=== PATIENT | male | born 1995 | race Caucasian/White ===

== ENCOUNTER 2016-09-01 15:45 | Emergency (ER) | payer BC, MEDICAID ==
--- NOTE | 2016-09-01 15:52 | ED Physician Chart ---
Chief Complaint/HPI - Patient Information Date Seen:: 09/01/16 Time Seen:: 15:45 Chief Complaint:: headache History of Present Illness:: 20-year-old male with acute, constant, severe, 10-10, nonradiating, headache 1 week. Took [id number] pain medicine but nothing helped. Denies numbness , tingling, acute vision changes, hearing loss, chest pain, palpitations, nausea , vomiting, dysuria, gross hematuria, gross blood in stool, diarrhea. Historian:: Patient Review:: Nurse's Note Reviewed Review of Systems - Review of Systems Other: Complete system review otherwise unremarkable except as noted in history of present illness. Past Medical History - Past Medical History Past Medical History: No significant medical hx Family History: None Social History: Non Smoker, No Alcohol, No Drug Use, Employed Surgical History: None Psychiatricy History: None Medication: None Family Medical History - Family Member Mother History Unknown: Yes Physical Exam - Physical Examination Other:: INITIAL VITAL SIGNS: Reviewed by me GENERAL: Alert and interactive. No acute distress HEAD: Head is normocephalic and atraumatic EYES: EOMI. PERRL. No scleral icterus. No conjunctival injection ENT: Moist mucous membranes. NECK: Supple. No masses. Full range of motion RESPIRATORY: No tachypnea. Clear breath sounds bilaterally. No wheezing, rales, or rhonchi CV: Regular rate and rhythm. No murmurs, rubs, or gallops ABDOMEN: Soft, non-distended, non-tender. No guarding. No rebound. No masses. EXTREMITIES: No deformity. No cyanosis. No edema. SKIN: Warm and dry. No obvious rashes. NEUROLOGIC: Alert and oriented. Face is symmetric. Speech is normal. Moves all extremities equally. Motor and sensory distally intact. Labs/Radiology/EKG Results - Radiology Results Results: CT head without contrast per radiology NAD ED Septic Shock - . Is Septic Shock (SBP<90, OR Lactate>4 mmol\L) present?: No Reassessment (Disposition) - Reassessment Reassessment:: Patient presents with headache for the past week. Has history of migraine headaches. Gave IV Toradol, Decadron, Compazine, Benadryl, normal saline and pain improved. Likely suffering from acute migraine. CT unremarkable. Recommend follow-up primary care 1-2 days. Return to ER precautions given. Patient's family understands and agrees with plan. Blood pressure was noted to be elevated over 120/80. There were no signs of hypertension. Discussed the findings with the patient and recommended that the patient follow up with the primary care physician regarding the elevated blood pressure. Reassessment Condition:: Improved - Diagnosis Diagnosis:: Acute cephalalgia Elevated blood pressure without diagnosis of hypertension - Aftercare/Follow up Instructions Aftercare/Follow-Up Instructions:: Counseled pt regarding lab results/diagnosis & need follow up, Refer to Discharge Instructions - Patient Disposition Discharge/Transfer:: Home Condition at Disposition:: Improved ED Discharge Plan - Patient Disposition Condition at Disposition: Improved
[2016-09-01] MEDS ORDERED: Sodium Chloride 0.9% 1,000 ML IV ONE (16:04)
[2016-09-01] MEDS ORDERED: Prochlorperazine 5 mg/mL 2mL Vial IVP STA (16:04)
[2016-09-01] MEDS ORDERED: Dexamethasone Sodium Phos 4 mg/mL Vial IVP STA (16:06)
[2016-09-01] MEDS ORDERED: Dexamethasone Sodium Phos 10 mg/mL PF Vial ONE (16:31)
[2016-09-01] MEDS ORDERED: Prochlorperazine 5 mg/mL 2mL Vial ONE (16:33)
--- NOTE | 2016-09-02 10:53 | Diagnostic Imaging Report ---
Head CT without intravenous contrast Indication: pain Comparison: None Technique: Axial images were obtained from the vertex to the skull base without IV contrast. Coronal reconstructions were made. Total DLP: [id number], [id number] FINDINGS: Images of the brain obtained without contrast demonstrate no acute hemorrhage. No mass lesions identified. The ventricles and basal cisterns are patent. The marrero-white matter differentiation is preserved. There is no mass effect or midline shift. Right frontal sinusitis is seen extending to the anterior right ethmoid air cells. IMPRESSION: No acute intracranial abnormality Right frontal sinusitis extending to the right anterior ethmoid air cells.
== END 2016-09-01 17:58 | disposition home or self-care (01) ==
LOC: ER 15:45 → EDSEX 15:45 → ER 17:58
DX: R51 Headache (principal); R03.0 Elevated blood-pressure reading, without diagnosis of hypertension
CPT/HCPCS: 99284; 96361; 96374; 96375; 70450; J1885; J0780; J1200; J7030; Z7502